=== PATIENT | male | born 1985 | race Caucasian/White ===

== ENCOUNTER 2017-11-20 15:09 | Emergency (ER) | payer SELFPAY ==
[2017-11-20] MEDS ORDERED: Azithromycin 250 MG TAB ONE ×2 (16:24)
[2017-11-20] MEDS ORDERED: Lidocaine 1% PF 5 ML VIAL ONE (16:24)
[2017-11-20] MEDS ORDERED: cefTRIAXone\\ROCEPHIN 250 MG VIAL ONE (16:24)
[2017-11-20 16:45] LABS: Bilirubin Negative (Negative); Blood, Urine Trace (Negative); Clarity CLOUDY (Clear); Glucose, Urine (Dipstick) Negative (Negative); Leukocyte Large (Negative); Nitrite Negative (Negative); Protein, Urine (Dipstick) 30 mg/dL (Neg-Trace); Specific Gravity, Urine 1.033 (1.002-1.036)
[2017-11-20 16:47] LABS: Bacteria/HPF None Seen HPF (None Seen); Hyaline Casts/LPF 0-3 HYALINE CAST LPF (0-3 Hyaline); Pathc Cast-AUWi Flag 0.29 (0-2.49); Squamous Epithelial None Seen HPF (0-3)
== END 2017-11-20 16:57 | disposition home or self-care (01) ==
LOC: ERS 15:09
DX: R30.0 Dysuria (principal); F17.210 Nicotine dependence, cigarettes, uncomplicated
CPT/HCPCS: 81003; 81015; 96372; J0696; J2001